=== PATIENT | female | born 1955 | race Caucasian/White ===

== ENCOUNTER 2023-06-25 12:20 | Emergency (ER) | payer MEDICARE, OTHER ==
[2023-06-25] MEDS ORDERED: Sodium Chloride 0.9% 10 ML Syringe FLUSH PRN (12:59)
[2023-06-25] MEDS: Sodium Chloride 0.9% 1,000 ML IV ONE (13:19)
[2023-06-25 13:43] LABS: BASOPHILS ABSOLUTE AUTO 0.03 K/uL (0.00-0.20); BASOPHILS PERCENT AUTO 0.3 % (0.0-2.0); EOSINOPHILS ABSOLUTE AUTO 0.15 K/uL (0.00-0.50); EOSINOPHILS PERCENT AUTO 1.5 % (0.0-5.0); HEMATOCRIT 38.7 % (34.0-46.0); HEMOGLOBIN 12.8 g/dL (11.7-15.5); LYMPHOCYTES ABSOLUTE AUTO 2.02 K/uL (0.50-3.50); LYMPHOCYTES PERCENT AUTO 20.8 % (10.0-50.0); MEAN CORPUSCULAR HGB CONC 33.1 g/dL (31.7-36.0); MEAN CORPUSCULAR VOLUME 90.6 fL (84.0-98.0); MONOCYTES ABSOLUTE AUTO 0.98 K/uL (0.00-1.00); MONOCYTES PERCENT AUTO 10.1 % (2.0-14.0); NEUTROPHILS ABSOLUTE AUTO 6.54 K/uL (1.40-7.00); NEUTROPHILS PERCENT AUTO 67.3 % (45.0-80.0); PLATELET COUNT,PLT 225 K/uL (150-350); RED BLOOD CELL COUNT 4.27 M/uL (3.77-5.09); RED CELL DISTRIBUTION WIDTH 13.9 % (11.2-14.1); WHITE BLOOD CELL COUNT,WBC 9.7 K/uL (4.0-10.2)
[2023-06-25 14:11] LABS: ALBUMIN 3.4 g/dL (3.4-5.0); ANION GAP 7.1 meq/L (7-15); BILIRUBIN TOTAL 0.8 mg/dL (0.2-1.0); CALCIUM 9.2 mg/dL (8.5-10.1); CARBON DIOXIDE,CO2 29.9 mmol/L (21.0-32.0); CREATININE 1.62 mg/dL (0.51-1.17); EST CRCL DRUG DOSING (CG) 26.73 mL/min; MAGNESIUM 2.2 mg/dL (1.8-2.4); POTASSIUM,K 3.6 mmol/L (3.5-5.1); PROTEIN TOTAL,TP 7.1 g/dL (6.4-8.2)
[2023-06-25 15:32] LABS: CORONAVIRUS COVID-19 NAA NEGATIVE (NEGATIVE); INFLUENZA A NAA NEGATIVE (NEGATIVE); INFLUENZA B NAA NEGATIVE (NEGATIVE); RESPIRATORY SYNCYTIAL VIR NAA NEGATIVE (NEGATIVE)
== END 2023-06-25 15:50 | disposition home or self-care (01) ==
LOC: LL.ED 12:20
DX: J06.9 Acute upper respiratory infection, unspecified (principal); I10 Essential (primary) hypertension; E78.00 Pure hypercholesterolemia, unspecified; E66.9 Obesity, unspecified; Z68.29 Body mass index [BMI] 29.0-29.9, adult; Z88.2 Allergy status to sulfonamides; Z88.0 Allergy status to penicillin; Z91.011 Allergy to milk products; Z91.012 Allergy to eggs; Z91.018 Allergy to other foods; Z88.8 Allergy status to other drugs, medicaments and biological substances; Z79.899 Other long term (current) drug therapy; Z90.710 Acquired absence of both cervix and uterus; Z87.891 Personal history of nicotine dependence; Z20.822 Contact with and (suspected) exposure to COVID-19
CPT/HCPCS: 0241U; 36415; 71045; 80053; 83605; 83735; 83880; 84484; 85025; 85379; 87040; 93005; 93010; 96360; 96361; 99284; 99284-25; J7030

== ENCOUNTER 2023-11-27 11:19 | Emergency (ER) | payer MEDICARE, OTHER ==
[2023-11-27] MEDS ORDERED: Sodium Chloride 0.9% 10 ML Syringe FLUSH PRN (11:35)
[2023-11-27] MEDS: Sodium Chloride 0.9% 1,000 ML IV ONE (11:42)
[2023-11-27 12:00] LABS: BASOPHILS ABSOLUTE AUTO 0.02 K/uL (0.00-0.20); BASOPHILS PERCENT AUTO 0.3 % (0.0-2.0); EOSINOPHILS ABSOLUTE AUTO 0.09 K/uL (0.00-0.50); EOSINOPHILS PERCENT AUTO 1.2 % (0.0-5.0); HEMATOCRIT 37.8 % (34.0-46.0); HEMOGLOBIN 12.4 g/dL (11.7-15.5); LYMPHOCYTES ABSOLUTE AUTO 2.76 K/uL (0.50-3.50); LYMPHOCYTES PERCENT AUTO 37.3 % (10.0-50.0); MEAN CORPUSCULAR HEMOGLOBIN 30.7 pg (28.2-33.3); MEAN CORPUSCULAR HGB CONC 32.8 g/dL (31.7-36.0); MEAN CORPUSCULAR VOLUME 93.6 fL (84.0-98.0); MONOCYTES ABSOLUTE AUTO 0.62 K/uL (0.00-1.00); MONOCYTES PERCENT AUTO 8.4 % (2.0-14.0); NEUTROPHILS ABSOLUTE AUTO 3.91 K/uL (1.40-7.00); NEUTROPHILS PERCENT AUTO 52.8 % (45.0-80.0); PLATELET COUNT,PLT 209 K/uL (150-350); RED BLOOD CELL COUNT 4.04 M/uL (3.77-5.09); RED CELL DISTRIBUTION WIDTH 14.3 % (11.2-14.1); WHITE BLOOD CELL COUNT,WBC 7.4 K/uL (4.0-10.2)
[2023-11-27 12:22] LABS: ALANINE AMINOTRANSFERASE,ALT 26 U/L (12-78); ALBUMIN 3.5 g/dL (3.4-5.0); ALKALINE PHOSPHATASE 52 IU/L (46-116); ANION GAP 6.6 meq/L (7-15); ASPARTATE AMNIOTRANSFERASE,AST 14 U/L (15-37); BILIRUBIN TOTAL 0.7 mg/dL (0.2-1.0); BLOOD UREA NITROGEN,BUN 27 mg/dL (7-18); CALCIUM 8.7 mg/dL (8.5-10.1); CARBON DIOXIDE,CO2 27.4 mmol/L (21.0-32.0); CHLORIDE,CL 102 mmol/L (98-107); CREATININE 1.48 mg/dL (0.51-1.17); ESTIMATED GFR 38 mL/min (>=60); ETHANOL BLOOD MEDICAL 0.003 g/dL (0.000-0.080); GLUCOSE RANDOM 124 mg/dL (70-99); MAGNESIUM 2.2 mg/dL (1.8-2.4); POTASSIUM,K 3.7 mmol/L (3.5-5.1); PROTEIN TOTAL,TP 6.3 g/dL (6.4-8.2); SODIUM,NA 136 mmol/L (136-145)
[2023-11-27] MEDS: Potassium Chloride 10 MEQ Tab.ER PO ONE ×2 (17:41)
[2023-11-27] MEDS: Magnesium Oxide 400 MG Tab PO ONE (17:41)
[2023-11-27] MEDS: Enoxaparin 40 MG/0.4 ML Syringe SUBCUT ONE (17:41)
== END 2023-11-27 17:45 ==
LOC: LL.ED 11:19
DX: I95.9 Hypotension, unspecified (principal); I48.91 Unspecified atrial fibrillation; I10 Essential (primary) hypertension; E78.00 Pure hypercholesterolemia, unspecified; E66.9 Obesity, unspecified; Z90.710 Acquired absence of both cervix and uterus; Z79.899 Other long term (current) drug therapy; Z88.0 Allergy status to penicillin; Z88.1 Allergy status to other antibiotic agents; Z88.5 Allergy status to narcotic agent; Z88.6 Allergy status to analgesic agent; Z88.2 Allergy status to sulfonamides; Z91.012 Allergy to eggs; Z91.011 Allergy to milk products; Z91.018 Allergy to other foods
CPT/HCPCS: 36415; 80053; 80307; 83605; 83735; 84484; 85025; 93005; 93010; 96360; 96372; 99284; 99285-25; A9270-GY; J1650; J7030